=== PATIENT | male | born 1955 | race Caucasian/White ===

== ENCOUNTER 2016-12-18 19:12 | Emergency (ER) | payer BC, OTHER ==
--- NOTE | 2016-12-18 20:28 | ERRECORD ---
[facility] EMERGENCY RECORD PAST MEDICAL HISTORY (19:37 MVIL) MEDICAL HISTORY: Past medical history includes history of diabetes, Past medical history includes history of hypertension, which has been treated. Hx of HI in October 2014...varicos veins inside rt knee. REVIEWED 12/18/16. MALE SURGICAL HISTORY: Surgical history of tonsillectomy, Stent placement X2 10/2014. REVIEWED 12/18/16. PSYCHIATRIC HISTORY: No previous psychiatric history. REVIEWED 12/18/16. SOCIAL HISTORY: Patient denies alcohol use, Patient denies drug use, Patient has no smoking history. REVIEWED 12/18/16. FAMILY HISTORY: Family history is non-contributory to this case. REVIEWED 12/18/16. KNOWN ALLERGIES No Known Allergies (Unconfirmed) No Known Drug Allergies No Known Drug Allergy (Unconfirmed) CURRENT MEDICATIONS amLODIPine: TABLET : Strength - 5 mg : ORAL Patient Dose: once a day (in the morning). (19:43 MVIL) aspirin: TABLET : Strength - 81 mg : ORAL Patient Dose: once a day (in the morning). (19:43 MVIL) Lipitor: TABLET : Strength - 80 mg : ORAL Patient Dose: once a day (in the evening). (19:44 MVIL) busPIRone: TABLET : Strength - 10 mg : ORAL Patient Dose: 2 times a day (with meals). (19:46 MVIL) Plavix: TABLET : Strength - 75 mg : ORAL Patient Dose: once a day (in the morning). (19:46 MVIL) furosemide: TABLET : Strength - 20 mg : ORAL Patient Dose: once a day (in the morning). (19:48 MVIL) Imdur: TABLET, EXTENDED RELEASE 24 HR : Strength - 30 mg : ORAL Patient Dose: once a day (in the morning). (19:49 MVIL) meTOPROLOL tartrate: TABLET : Strength - 50 mg : ORAL Patient Dose: once a day (in the morning). (19:51 MVIL) metFORMIN: TABLET : Strength - 1,000 mg : ORAL Patient Dose: 2 times a day. (19:52 MVIL) omeprazole: CAPSULE,DELAYED RELEASE (ENTERIC COATED) : Strength - 20 mg : ORAL Patient Dose: once a day. (19:55 MVIL) &a-1R&a+25V*p+0X*s1007Z*c202B*c15G*c2P*p-0X&a-25V&a+1R Name: Naun Hargrove : 1955 M61 MedRec: [id number] AcctNum: [id number] Prepared: SatDec 18, 2016 20:14 by Interface Page 1 of 2 pMD [facility] EMERGENCY RECORD Diovan: TABLET : Strength - 320 mg : ORAL Patient Dose: once a day. (19:56 MVIL) VITAL SIGNS VITAL SIGNS: BP: 155/81, Pulse: 81, Resp: 20, Temp: 98.2 (Oral), Pain: 0, O2 sat: 96 on Room Air, Time: 12/18/2016 19:31. (19:31 MVIL) BP: 141/75, Pulse: 86, Resp: 20, Pain: 0, O2 sat: 96 on R/A, Time: 12/18/2016 19:37. (19:37 MVIL) PROBLEM LIST No recorded problems DIAGNOSIS (19:38 JPIP) FINAL: PRIMARY: subconjunctival hemorrhage. PRESCRIPTION No recorded prescriptions DISPOSITION PATIENT: Disposition Type: Discharge, Disposition: *Discharge Home, Condition: Good. (19:38 JPIP) Patient left the department. (20:09 SDIS) Landeros: LALITHA=DO Negrete Joseph MVIL=LARON Palacios, Kaylah SDIS=LARON Kumar, Keiko &a-1R&a+25V*p+0X*i6627A*c202B*c15G*c2P*p-0X&a-25V&a+1R Name: Naun Hargrove : 1955 M61 MedRec: [id number] AcctNum: [id number] Prepared: SatDec 18, 2016 20:14 by Interface Page 2 of 2 pMD MTDD
--- NOTE | 2016-12-18 20:30 | PICIS ---
[facility] EMERGENCY RECORD TRIAGE (19:33 MVIL) TRIAGE NOTES: SUDDEN LEFT EYE REDNESS TODAY. DENIES ANY INJURY TO THE EYE OR ANY PAIN. (19:33 MVIL) PATIENT: NAME: Nanu Hargrove, AGE: 61, GENDER: male, : Matilde 1955, TIME OF GREET: SatDec 18, 2016 19:13, PREFERRED LANGUAGE: [place], ETHNICITY: Not or , ECODE BILLING MAP: [facility], SSN: [id number], Zip Code: [address], KG WEIGHT: 120.20, HEIGHT/LENGTH: 172.72cm, BMI: 40.29, PHONE: , , , PERSON ID: [id number], PCP: DO DUMONT JOHN SCOTT. (19:33 MVIL) COMPLAINT: LEFT EYE REDNESS. (19:33 MVIL) ADMISSION: URGENCY: 4 Non Urgent, ADMISSION SOURCE: Home, TRANSPORT: CAR, BED: TRIAGE. (19:33 MVIL) ASSESSMENT: Assessment: C/O LEFT EYE REDNESS, SUDDEN ONSET. DENIES ANY INJURY TO THE EYE., Symptoms began 12/17/2016 19:36, Symptoms began 5 hours ago. (19:37 MVIL) PAIN: No complaint of pain. (19:37 MVIL) IMMUNIZATIONS: Flu vaccine not up to date, Tetanus not up to date, Pneumococcal vaccine not up to date. (19:37 MVIL) SIRS SCORING: Heart Rate 55-109 (0), Temp range 96.8-101.1 (0), respiratory rate 12-24 (0), Mental Status altered: no (0). (19:37 MVIL) PROVIDERS: TRIAGE NURSE: Kaylah Palacios RN. (19:33 MVIL) VITAL SIGNS: BP 155/81, Pulse 81, Resp 20, Temp 98.2, (Oral), Pain 0, O2 Sat 96, on Room Air, Time 12/18/2016 19:31. (19:31 MVIL) KNOWN ALLERGIES No Known Allergies (Unconfirmed) No Known Drug Allergies No Known Drug Allergy (Unconfirmed) CURRENT MEDICATIONS amLODIPine: TABLET : Strength - 5 mg : ORAL Patient Dose: once a day (in the morning). (19:43 MVIL) aspirin: TABLET : Strength - 81 mg : ORAL Patient Dose: once a day (in the morning). (19:43 MVIL) Lipitor: TABLET : Strength - 80 mg : ORAL Patient Dose: once a day (in the evening). (19:44 MVIL) busPIRone: TABLET : Strength - 10 mg : ORAL Patient Dose: 2 times a day (with meals). (19:46 MVIL) Plavix: TABLET : Strength - 75 mg : ORAL Patient Dose: once a day (in the morning). (19:46 MVIL) furosemide: TABLET : Strength - 20 mg : ORAL &a-1R&a+25V*p+0X*m9405H*c202B*c15G*c2P*p-0X&a-25V&a+1R Name: Naun Hargrove : 1955 M61 MedRec: [id number] AcctNum: [id number] Prepared: Sylvie Dec 18, 2016 20:22 by Interface Page 1 of 4 pMD [facility] EMERGENCY RECORD Patient Dose: once a day (in the morning). (19:48 MVIL) Imdur: TABLET, EXTENDED RELEASE 24 HR : Strength - 30 mg : ORAL Patient Dose: once a day (in the morning). (19:49 MVIL) meTOPROLOL tartrate: TABLET : Strength - 50 mg : ORAL Patient Dose: once a day (in the morning). (19:51 MVIL) metFORMIN: TABLET : Strength - 1,000 mg : ORAL Patient Dose: 2 times a day. (19:52 MVIL) omeprazole: CAPSULE,DELAYED RELEASE (ENTERIC COATED) : Strength - 20 mg : ORAL Patient Dose: once a day. (19:55 MVIL) Diovan: TABLET : Strength - 320 mg : ORAL Patient Dose: once a day. (19:56 MVIL) VITAL SIGNS VITAL SIGNS: BP: 155/81, Pulse: 81, Resp: 20, Temp: 98.2 (Oral), Pain: 0, O2 sat: 96 on Room Air, Time: 12/18/2016 19:31. (19:31 MVIL) BP: 141/75, Pulse: 86, Resp: 20, Pain: 0, O2 sat: 96 on R/A, Time: 12/18/2016 19:37. (19:37 MVIL) NURSING ASSESSMENT: EYE (19:37 MVIL) CONSTITUTIONAL: Patient arrives ambulatory, Gait steady, History obtained from patient, Patient appears comfortable, Patient cooperative, Patient alert, Oriented to person, place and time, Skin warm, Skin dry, Skin normal in color, Mucous membranes pink, Mucous membranes moist, Patient is well-groomed, Patient complains of LEFT EYE REDNESS, STARTED TODAY. DENIES ANY INJURY TO THE EYE. DENIES ANY PAIN. HAS NOT INTERFERED WITH VISION. PAIN: Left eye, LEFT EYE ITCHINESS AND REDNESS NOTED. DR CASEY CALDWELL AND WILL EVALUATE PATIENT. EYES: Eye assessment findings include orbits normal, Eye lids normal, Conjunctiva normal, Sclera, with hemorrhage on the left, Cornea clear, Iris normal, Pupils equally round and reactive to light, Left pupil 3 mm in size, Right pupil 3 mm in size, no associated visual changes. SAFETY: Side rails up, Cart/Stretcher in lowest position, Family at bedside, Call light within reach, Hospital ID band on. VITAL SIGNS: BP: 141, / 75, Pulse: 86, Resp: 20, Pain: 0, O2 sat: 96, on: R/A. NURSING PROCEDURE: DISCHARGE NOTE (20:00 MVIL) DISCHARGE: Patient discharged to home, ambulating without assistance, family driving, accompanied by //partner, Summary of Care printed/ provided, Patient requested and was provided an electronic copy of Discharge Instructions, Transition record given to patient, Discharge instructions given to patient, Above person(s) verbalized understanding of discharge instructions and follow-up &a-1R&a+25V*p+0X*c6320H*c202B*c15G*c2P*p-0X&a-25V&a+1R Name: Naun Hargrove : 1955 M61 MedRec: [id number] AcctNum: [id number] Prepared: SatDec 18, 2016 20:22 by Interface Page 2 of 4 D [facility] EMERGENCY RECORD care. BELONGINGS: Belongings and valuables with patient at time of discharge include:. PAST MEDICAL HISTORY (19:37 MVIL) MEDICAL HISTORY: Past medical history includes history of diabetes, Past medical history includes history of hypertension, which has been treated. Hx of ID in October 2014...varicos veins inside rt knee. REVIEWED 12/18/16. MALE SURGICAL HISTORY: Surgical history of tonsillectomy, Stent placement X2 10/2014. REVIEWED 12/18/16. PSYCHIATRIC HISTORY: No previous psychiatric history. REVIEWED 12/18/16. SOCIAL HISTORY: Patient denies alcohol use, Patient denies drug use, Patient has no smoking history. REVIEWED 12/18/16. FAMILY HISTORY: Family history is non-contributory to this case. REVIEWED 12/18/16. EVENTS TRANSFER: Triage to Emergency Triage. (SatDec 18, 2016 19:33 MVIL) Emergency Triage to Emergency Room -02. (19:34 MVIL) Removed from Emergency Emergency Room -02. (20:09 SDIS) PROBLEM LIST No recorded problems DIAGNOSIS (19:38 JPIP) FINAL: PRIMARY: subconjunctival hemorrhage. DISPOSITION PATIENT: Disposition Type: Discharge, Disposition: *Discharge Home, Condition: Good. (19:38 JPIP) Patient left the department. (20:09 SDIS) INSTRUCTION (19:58 JPIP) DISCHARGE: SUBCONJUNCTIVAL HEMORRHAGE. FOLLOWUP: DO DUMONT JOHN SCOTT, [facility], [address] [place] [address], . SPECIAL: Follow up with Primary Care Physician within 72 hours Return to the Emergency Department for increased symptoms problems or concerns. PRESCRIPTION No recorded prescriptions IMAGING *SUPPLY CHARGE SHEET: Image captured from scanner. (19:58 MVIL) *DISCHARGE INSTRUCTIONS RECEIPT: Image captured from scanner. (20:01 MVIL) &a-1R&a+25V*p+0X*a7483N*c202B*c15G*c2P*p-0X&a-25V&a+1R Name: Naun Hargrove Jeovany : 1955 M61 MedRec: [id number] AcctNum: [id number] Prepared: SatDec 18, 2016 20:22 by Interface Page 3 of 4 pMD [facility] EMERGENCY RECORD [place]anderos: LALITHA=DO Negrete Joseph MVIL=LARON Palacios Mariella SDIS=LARON Kumar, Keiko &a-1R&a+25V*p+0X*[id number]*c202B*c15G*c2P*p-0X&a-25V&a+1R Name: Naun Hargrove : 1955 M61 MedRec: [id number] AcctNum: [id number] Prepared: Sylvie Dec 18, 2016 20:22 by Interface Page 4 of 4 pMD MTDD
== END 2016-12-18 20:00 | disposition home or self-care (01) ==
LOC: BURERS 19:12
DX: H11.32 Conjunctival hemorrhage, left eye (principal); I10 Essential (primary) hypertension; I25.2 Old myocardial infarction; E11.9 Type 2 diabetes mellitus without complications; Z95.5 Presence of coronary angioplasty implant and graft; Z79.82 Long term (current) use of aspirin; Z79.84 Long term (current) use of oral hypoglycemic drugs; Z79.01 Long term (current) use of anticoagulants; Z79.899 Other long term (current) drug therapy
CPT/HCPCS: 99282